=== PATIENT | male | born 1975 | race Caucasian/White ===

== ENCOUNTER 2019-09-29 16:33 | Emergency (ER) | payer BC ==
[2019-09-29] MEDS ORDERED: NA CHLORIDE 0.9% 1,000 ML ONE (17:37)
[2019-09-29 17:39] LABS: Absolute Lymphocytes (CBC) 1.9 K/uL (0.7-4.9); Basophils % 0.6 % (0-1.3); Hematocrit 45.9 % (39.6-49.0); Lymphocytes % 11.5 % (15.3-44.8); MPV 8.6 fL (7.6-11.3); RBC Red Blood Cell Count 5.21 M/uL (4.33-5.43)
--- NOTE | 2019-09-29 17:41 | RAD REPORT ---
EXAM DESCRIPTION: US - Scrotum Testicles - 09/29/2019 5:34 pm CLINICAL HISTORY: PAIN Pain and swelling COMPARISON: No comparisons FINDINGS: Both testicles are normal in size, shape and echotexture. Mild bilateral microlithiasis of both testicles. Doppler blood flow was demonstrated to both testicles. Both epididymides are normal in size and appearance. Small left sided hydrocele. IMPRESSION: No evidence of testicular torsion. Bilateral testicular microlithiasis.
[2019-09-29 17:47] LABS: Potassium 4.2 mmol/L (3.5-5.1)
--- NOTE | 2019-09-29 19:34 | RAD REPORT ---
EXAM DESCRIPTION: CT - Stone Protocol - 09/29/2019 6:04 pm CLINICAL HISTORY: Flank pain. ABD PAIN COMPARISON: No comparisons TECHNIQUE: Axial images were obtained without oral or IV contrast. Lack of contrast limits solid org an and vascular assessment. The xylmg-jw-weur spans the entirety of the system partially obscuring uppermost abdomen and lung bases. Coronal reformatted images were obtained and reviewed. All CT scans are performed using dose optimization technique as appropriate and may include automated exposure control or mA/KV adjustment according to patient size. FINDINGS: Linear subsegmental atelectasis is present in both lung bases. Imaged portions of the liver and spleen show no suspicious findings on non-contrast imaging. The panc reas and adrenal glands are normal. No pathologic lymphadenopathy in the abdomen or pelvis. 3 mm stone is present in the left UVJ resulting in mild left hydronephrosis. Punctate right nephrolit hiasis. No bowel obstruction, free air, free fluid or abscess. Normal appendix noted. No significant bony abnormality. IMPRESSION: 3 mm left UVJ stone resulting in mild left hydronephrosis.
[2019-09-29 20:02] LABS: Urine Bacteria <20 /HPF (NONE SEEN); Urine Culture Reflex Order NOT NEEDED
[2019-09-29] MEDS ORDERED: TAMSULOSIN 0.4 MG SR CAP ONE (20:29)
[2019-09-29] MEDS ORDERED: CEFTRIAXONE/SWI 1gm 1 GM/10 ML SYR ONE (20:30)
--- NOTE | 2019-09-29 20:34 | EDPHYS ---
Physician Documentation [facility] Cheryl Name: Marcelo Viera Age: 43 yrs Sex: Male : 1975 Arrival Date: 09/29/2019 Time: 16:37 Bed 18 Private MD: ED Physician Tadeo Reid HPI: 09/29 17:09 This 43 yrs old Male presents to ER via Ambulatory with complaints of kb Abdominal Pain, Testicular Pain. 17:09 The patient presents with abdominal pain in the left lower quadrant. Onset: The kb symptoms/episode began/occurred today. The symptoms radiate to left testicle. Associated signs and symptoms: Pertinent positives: nausea and vomiting, testicular pain. The symptoms are described as constant. Modifying factors: The symptoms are alleviated by nothing, the symptoms are aggravated by nothing. Severity of pain: At its worst the pain was moderate in the emergency department the pain is unchanged. The patient has not experienced similar symptoms in the past. The patient has not recently seen a physician. Pt reports he had sudden onset of pain that runs from LLQ to left testicle. States he is not sure if it starts in abd or testicle. Reports urinary urgency, but only dribbling when he goes and it is dark. Historical: - Allergies: 16:42 No Known Allergies; hb - Home Meds: 16:42 None [Active]; hb - PMHx: 16:42 None; hb - PSHx: 16:42 Hand - Right; hb - Immunization history:: Adult Immunizations up to date. - Coronavirus screen:: The patient has NOT traveled to [place], [place], or [place] in the past 14 days. The patient has NOT had contact with known/suspected case of Coronavirus? Proceed with normal triage procedures. - Social history:: Smoking status: Patient reports the use of cigarette tobacco products, smokes one pack cigarettes per day. - Ebola Screening: : No symptoms or risks identified at this time. ROS: 17:08 Constitutional: Negative for fever, chills, and weight loss, ENT: Negative for injury, kb pain, and discharge, Neck: Negative for injury, pain, and swelling, Cardiovascular: Negative for chest pain, palpitations, and edema, Respiratory: Negative for shortness of breath, cough, wheezing, and pleuritic chest pain, Back: Negative for injury and pain, MS/Extremity: Negative for injury and deformity, Skin: Negative for injury, rash, and discoloration, Neuro: Negative for headache, weakness, numbness, tingling, and seizure. 17:08 Abdomen/GI: Positive for abdominal pain, nausea and vomiting. 17:08 : Positive for small amounts, difficulty urinating, testicular pain Exam: 17:08 Constitutional: This is a well developed, well nourished patient who is awake, alert, kb and in no acute distress. Head/Face: Normocephalic, atraumatic. ENT: Nares patent. No nasal discharge, no septal abnormalities noted. Tympanic membranes are normal and external auditory canals are clear. Oropharynx with no redness, swelling, or masses, exudates, or evidence of obstruction, uvula midline. Mucous membranes moist. Neck: Trachea midline, no thyromegaly or masses palpated, and no cervical lymphadenopathy. Supple, full range of motion without nuchal rigidity, or vertebral point tenderness. No Meningismus. Chest/axilla: Normal chest wall appearance and motion. Nontender with no deformity. No lesions are appreciated. Cardiovascular: Regular rate and rhythm with a normal S1 and S2. No gallops, murmurs, or rubs. Normal PMI, no JVD. No pulse deficits. Respiratory: Lungs have equal breath sounds bilaterally, clear to auscultation and percussion. No rales, rhonchi or wheezes noted. No increased work of breathing, no retractions or nasal flaring. Back: No spinal tenderness. No costovertebral tenderness. Full range of motion. Skin: Warm, dry with normal turgor. Normal color with no rashes, no lesions, and no evidence of cellulitis. MS/ Extremity: Pulses equal, no cyanosis. Neurovascular intact. Full, normal range of motion. Neuro: Awake and alert, GCS 15, oriented to person, place, time, and situation. Cranial nerves II-XII grossly intact. Motor strength 5/5 in all extremities. Sensory grossly intact. Cerebellar exam normal. Normal gait. 17:08 Abdomen/GI: Inspection: abdomen appears normal, Bowel sounds: normal, in all quadrants, Palpation: soft, in all quadrants, mild abdominal tenderness, in the left lower quadrant. Vital Signs: 16:41 BP 153 / 77; Pulse 70; Resp 16; Temp 99; Pulse Ox 99% on R/A; Weight 87.54 kg; Height 5 hb ft. 9 in. (175.26 cm); Pain 9/10; 17:40 BP 140 / 80; Pulse 64; Resp 17; Pulse Ox 99% on R/A; Pain 3/10; rb1 18:40 BP 137 / 79; Pulse 67; Resp 18; Pulse Ox 96% ; Pain 3/10; rb1 19:36 BP 128 / 72; Pulse 59; Resp 17 S; Pulse Ox 95% on R/A; Pain 3/10; jd3 20:27 BP 124 / 69; Pulse 65; Resp 17 S; Pulse Ox 95% on R/A; jd3 16:41 Body Mass Index 28.50 (87.54 kg, 175.26 cm) hb MDM: 16:48 Patient medically screened. kb 17:08 Data reviewed: vital signs, nurses notes. Data interpreted: Pulse oximetry: on room air kb is 99 %. Interpretation: normal. 20:46 Counseling: I had a detailed discussion with the patient and/or guardian regarding: the snw historical points, exam findings, and any diagnostic results supporting the discharge/admit diagnosis, lab results, radiology results, the need for outpatient follow up, to return to the emergency department if symptoms worsen or persist or if there are any questions or concerns that arise at home. Response to treatment: the patient's symptoms have markedly improved after treatment. Special discussion: Based on the patient's Hx, exam, and Dx evaluation, there is no indication for emergent surgery or inpatient Tx. It is understood by the patient/guardian that if the Sx's persist or worsen they need to return immediately for re-evaluation. I discussed with the patient the need to follow-up with the PCP/specialist for the noted incidental finding on X-ray/CT scanning. Based on the history and exam findings, there is no indication for further emergent testing or inpatient evaluation. I discussed with the patient/guardian the need to see the primary care provider for further evaluation of the symptoms. I discussed with the patient/guardian the need to see the urologist for further evaluation of the symptoms. microlithiasis to testes. 09/29 16:50 Order name: Basic Metabolic Panel; Complete Time: 17:47 kb 09/29 16:50 Order name: CBC with Diff; Complete Time: 17:45 kb 09/29 16:50 Order name: US Scrotum Testicles; Complete Time: 17:45 kb 09/29 16:50 Order name: Urine Microscopic Only; Complete Time: 20:10 kb 09/29 16:50 Order name: CT Stone Protocol; Complete Time: 19:35 kb 09/29 19:51 Order name: Urine Dipstick--Ancillary (enter results); Complete Time: 15:24 ar5 09/29 16:50 Order name: IV Saline Lock; Complete Time: 17:20 kb 09/29 16:50 Order name: Labs collected and sent; Complete Time: 17:20 kb 09/29 16:50 Order name: Urine Dipstick-Ancillary (obtain specimen); Complete Time: 20:35 kb Administered Medications: 17:36 Drug: NS 0.9% 1000 ml Route: IV; Rate: 1000 ml; Site: left antecubital; rb1 20:45 Follow up: Response: No adverse reaction; IV Status: Completed infusion; IV Intake: jd3 1000ml 20:31 Drug: Flomax 0.4 mg Route: PO; wh 20:45 Follow up: Response: Medication administered at discharge. jd3 20:31 Drug: Rocephin 1 grams Route: IV; Rate: calculated rate; Site: left antecubital; wh 20:46 Follow up: Response: Medication administered at discharge.; IV Status: Completed jd3 infusion Disposition: 09/29/19 20:33 Discharged to Home. Impression: Hydronephrosis with renal and ureteral calculous obstruction. - Condition is Stable. - Discharge Instructions: Kidney Stones, Testicular Self-Exam, Hydronephrosis, Dietary Guidelines to Help Prevent Kidney Stones, Rehydration, Adult. - Prescriptions for Augmentin 875- 125 mg Oral Tablet - take 1 tablet by ORAL route every 12 hours for 10 days; 20 tablet. Flomax 0.4 mg Oral Capsule, Sust. Release 24 hr - take 1 capsule by ORAL route once daily 1/2 hour following the same meal each day; 30 capsule. Diclofenac Sodium 75 mg Oral Tablet Sustained Release - take 1 tablet by ORAL route 2 times per day; 30 tablet. - Work release form, Medication Reconciliation Form, Thank You Letter, Antibiotic Education, Prescription Opioid Use form. - Follow up: Private Physician; When: 2 - 3 days; Reason: Recheck today's complaints, Continuance of care, Re-evaluation by your physician. Follow up: Emergency Department; When: As needed; Reason: Worsening of condition. Addendum: 09/30/2019 21:19 Co-signature as Attending Physician, Tadeo Reid MD I agree with the assessment and k dr plan of care. Signatures: Dispatcher [employer] EDMS Eneida Cerna, APPLIQUER-C APPLIQUER-Ckb Tadeo Reid MD MD [facility] Karuna Guillen, APPLIQUER-C APPLIQUER-Csnw Elsy Tian, RN RN [facility] Jeanette Salazar, RN RN Wilton Monreal Donald Hobson RN RN jd3 Corrections: (The following items were deleted from the chart) 09/29 17:09 17:08 : Positive for testicular pain kb kb 20:46 20:33 09/29/2019 20:33 Discharged to Home. Impression: Hydronephrosis with renal and jd3 ureteral calculous obstruction. Condition is Stable. Forms are Medication Reconciliation Form, Thank You Letter, Antibiotic Education, Prescription Opioid Use. Follow up: Private Physician; When: 2 - 3 days; Reason: Recheck today's complaints, Continuance of care, Re-evaluation by your physician. Follow up: Emergency Department; When: As needed; Reason: Worsening of condition. snw
--- NOTE | 2019-09-29 20:34 | ER ---
Nurse's Notes [facility] Cheryl Name: Marcelo Viera Age: 43 yrs Sex: Male : 1975 Arrival Date: 09/29/2019 Time: 16:37 Bed 18 Private MD: Diagnosis: Hydronephrosis with renal and ureteral calculous obstruction Presentation: 09/29 16:39 Presenting complaint: Testicular pain that radiates to left abdomen, N/V. and dark hb brown urine x 2 days. Denies injury/fever. Not tolerating fluids. Transition of care: patient was not received from another setting of care. Onset of symptoms was September 28, 2019. Risk Assessment: Do you want to hurt yourself or someone else? Patient reports no desire to harm self or others. Initial Sepsis Screen: Does the patient meet any 2 criteria? No. Patient's initial sepsis screen is negative. Does the patient have a suspected source of infection? No. Patient's initial sepsis screen is negative. Care prior to arrival: None. 16:39 Method Of Arrival: Ambulatory hb 16:39 Acuity: DARIUS 3 hb Historical: - Allergies: 16:42 No Known Allergies; hb - Home Meds: 16:42 None [Active]; hb - PMHx: 16:42 None; hb - PSHx: 16:42 Hand - Right; hb - Immunization history:: Adult Immunizations up to date. - Coronavirus screen:: The patient has NOT traveled to [place], [place], or [place] in the past 14 days. The patient has NOT had contact with known/suspected case of Coronavirus? Proceed with normal triage procedures. - Social history:: Smoking status: Patient reports the use of cigarette tobacco products, smokes one pack cigarettes per day. - Ebola Screening: : No symptoms or risks identified at this time. Screenin:45 Abuse screen: Denies threats or abuse. Nutritional screening: having trouble tolerating rb1 liquids. Tuberculosis screening: No symptoms or risk factors identified. Fall Risk None identified. Assessment: 16:45 General: Appears uncomfortable, Behavior is calm, cooperative, Denies fever. Pain: rb1 Complains of pain in left testicle Pain radiates to left lower quadrant Pain currently is 3 out of 10 on a pain scale. Pain began this morning. Neuro: Level of Consciousness is awake, alert, obeys commands, Oriented to person, place, time, situation. Cardiovascular: Capillary refill < 3 seconds is brisk in bilateral fingers. Respiratory: Airway is patent Respiratory effort is even, unlabored, Respiratory pattern is regular, symmetrical. GI: Reports nausea, vomiting. : Reports dark colored urine x 2 days. Derm: Skin is pink, warm \\T\\ dry. 17:40 Reassessment: Patient appears in no apparent distress at this time. Patient and/or rb1 family updated on plan of care and expected duration. Pain level reassessed. Patient is alert, oriented x 3, equal unlabored respirations, skin warm/dry/pink. 18:40 Reassessment: Patient appears in no apparent distress at this time. No changes from rb1 previously documented assessment. 19:37 General: Appears in no apparent distress. uncomfortable, Behavior is calm, cooperative, jd3 appropriate for age. Pain: Complains of pain in left lower quadrant and groin Quality of pain is described as aching. Neuro: Level of Consciousness is awake, alert, obeys commands, Oriented to person, place, time, situation. Cardiovascular: Denies chest pain, Capillary refill < 3 seconds Patient's skin is warm and dry. Respiratory: Airway is patent Respiratory effort is even, unlabored, Respiratory pattern is regular, symmetrical, Denies cough, shortness of breath. GI: No signs and/or symptoms were reported involving the gastrointestinal system. Abd is soft and non tender X 4 quads. Patient currently denies nausea. : Reports pain into the left testicle. pt states, "it is just sore now.". EENT: No signs and/or symptoms were reported regarding the EENT system. Derm: Skin is intact, Skin is dry, Skin is normal, Skin temperature is warm. Musculoskeletal: Circulation, motion, and sensation intact. Range of motion: intact in all extremities. 20:27 Reassessment: Patient appears in no apparent distress at this time. Patient and/or jd3 family updated on plan of care and expected duration. Pain level reassessed. Patient is alert, oriented x 3, equal unlabored respirations, skin warm/dry/pink. Patient states feeling better. 20:44 Reassessment: pt reported understanding of discharge instructions, even and steady gait jd3 upon discharge. Vital Signs: 16:41 BP 153 / 77; Pulse 70; Resp 16; Temp 99; Pulse Ox 99% on R/A; Weight 87.54 kg; Height 5 hb ft. 9 in. (175.26 cm); Pain 9/10; 17:40 BP 140 / 80; Pulse 64; Resp 17; Pulse Ox 99% on R/A; Pain 3/10; rb1 18:40 BP 137 / 79; Pulse 67; Resp 18; Pulse Ox 96% ; Pain 3/10; rb1 19:36 BP 128 / 72; Pulse 59; Resp 17 S; Pulse Ox 95% on R/A; Pain 3/10; jd3 20:27 BP 124 / 69; Pulse 65; Resp 17 S; Pulse Ox 95% on R/A; jd3 16:41 Body Mass Index 28.50 (87.54 kg, 175.26 cm) hb ED Course: 16:37 Patient arrived in ED. jg7 16:40 Triage completed. hb 16:41 Arm band placed on. hb 16:43 Elsy Tian, RN is Primary Nurse. rb1 16:45 Patient has correct armband on for positive identification. Bed in low position. Call rb1 light in reach. Side rails up X 1. Pulse ox on. NIBP on. 16:48 Eneida Cerna FNP-C is PHCP. kb 16:48 Tadeo Reid MD is Attending Physician. kb 17:20 Initial lab(s) drawn, by me, sent to lab. Inserted saline lock: 20 gauge in left ms antecubital area, using aseptic technique. Blood collected. 17:33 PHCP role handed off by Eneida Cerna FNP-C snw 17:33 Karuna Guillen FNP-C is PHCP. snw 17:34 Ultrasound completed. Patient tolerated well. sg3 17:34 US Scrotum Testicles In Process Unspecified. EDMS 18:04 CT Stone Protocol In Process Unspecified. EDMS 18:09 CT completed. Patient tolerated procedure well. Patient moved to NM via stretcher. Patient moved back from NM. 20:43 No provider procedures requiring assistance completed. IV discontinued, intact, jd3 bleeding controlled, No redness/swelling at site. Pressure dressing applied. Administered Medications: 17:36 Drug: NS 0.9% 1000 ml Route: IV; Rate: 1000 ml; Site: left antecubital; rb1 20:45 Follow up: Response: No adverse reaction; IV Status: Completed infusion; IV Intake: jd3 1000ml 20:31 Drug: Flomax 0.4 mg Route: PO; 20:45 Follow up: Response: Medication administered at discharge. jd3 20:31 Drug: Rocephin 1 grams Route: IV; Rate: calculated rate; Site: left antecubital; 20:46 Follow up: Response: Medication administered at discharge.; IV Status: Completed jd3 infusion Intake: 20:45 IV: 1000ml; Total: 1000ml. jd3 Outcome: 20:33 Discharge ordered by . jeb 20:43 Discharged to home ambulatory, with family. jd3 20:43 Condition: stable 20:43 Discharge instructions given to patient, family, Instructed on discharge instructions, follow up and referral plans. medication usage, Demonstrated understanding of instructions, follow-up care, medications, Prescriptions given X 3. 20:46 Patient left the ED. jd3 Signatures: Dispatcher [employer] EDMS Eneida Cerna, NETWORK OPERATIONS TECHNICIAN-C NETWORK OPERATIONS TECHNICIAN-Ckb Karuna Guillen, NETWORK OPERATIONS TECHNICIAN-C NETWORK OPERATIONS TECHNICIAN-Csnw Hector Shin Tc Salud ms Elsy Tian, RN RN rb1 Jeanette Salazar RN RN hb Habalo, Winsy wh Davies, Jonathon, RN RN jd3 Godinez, Sarah sg3 Gutierrez, Jessica jg7
[2019-09-29 20:53] VITALS: TEMP 99
[2019-09-29 20:58] VITALS: O2SAT 95
[2019-09-29 20:59] VITALS: BP 124/69
[2019-09-29 22:09] LABS: Urine Blood 3+ (NEG); Urine Glucose NEGATIVE (NEG); Urine Protein 2+ (NEG)
== END 2019-09-29 20:46 | disposition home or self-care (01) ==
LOC: ER 16:33
DX: N13.2 Hydronephrosis with renal and ureteral calculous obstruction (principal)
CPT/HCPCS: 96361; 85025; 80048; 36415; 76377; 74176; 76870; 96374; 99284; J0696; J7030; 81003; 81015